=== PATIENT | male | born 1985 | race Caucasian/White ===

== ENCOUNTER → 2018-12-02 | Outpatient (CLI) | payer OTHER | END | disposition home or self-care (01) | LOC: LAB SHORT 13:50 → LAB SRC 13:50 | DX: F12.10 Cannabis abuse, uncomplicated (principal); Z79.899 Other long term (current) drug therapy | CPT/HCPCS: G0480 ==

== ENCOUNTER → 2018-12-24 | Outpatient (CLI) | payer OTHER | END | disposition home or self-care (01) | LOC: LAB SHORT 09:15 → LAB SRC 09:15 | DX: Z51.81 Encounter for therapeutic drug level monitoring (principal); F11.20 Opioid dependence, uncomplicated; Z79.899 Other long term (current) drug therapy | CPT/HCPCS: G0480 ==

== ENCOUNTER → 2020-01-17 | Outpatient (CLI) | payer OTHER | LOC: LAB SHORT 13:26 → LAB 13:26 | DX: Z51.81 Encounter for therapeutic drug level monitoring (principal); F11.20 Opioid dependence, uncomplicated | CPT/HCPCS: G0480 ==

== ENCOUNTER 2021-09-07 13:38 | Emergency (ER) | payer OTHER ==
[~2021-09-07] VITALS: Ht 172.7 cm; Wt 90.7 kg
== END 2021-09-07 16:12 | disposition home or self-care (01) ==
LOC: ER 13:38
DX: K40.90 Unilateral inguinal hernia, without obstruction or gangrene, not specified as recurrent (principal); F17.200 Nicotine dependence, unspecified, uncomplicated
CPT/HCPCS: 99283; A9270

== ENCOUNTER 2021-11-14 07:45 | Day surgery (SDC) | payer OTHER ==
[~2021-11-14] VITALS: Ht 172.7 cm; Wt 96.7 kg
--- NOTE | 2021-11-14 08:33 | NUR ---
PT AMBULATES TO [facility] c STEADY GAIT. History, Chart, Medications and Allergies reviewed before start of procedure. Lungs clear T/O to Auscultation, INTERMITTENT COUGH. Patient confirms NPO status and agrees with scheduled surgery. Surgical site prepped with 2% Chlorhexidine cloth wipe. Patient States Post-Procedure ride home has been arranged. [place] BAND IN PATIENTS BELONGINGS. + VOID.
--- NOTE | 2021-11-14 12:12 | NUR ---
ABSORBANT OCCLUSIVE DRSG TAPED TO LEFT GROIN, CLEAN, DRY AND INTACT WITH NO VISIBLE DRAINAGE, SWELLING, EYTHEMA OR BRUISING NOTED AROUND SITE. ICE APPLIED TO SURGERY SITE PER ORDER. PATIENT DENIES NAUSEA. WILL MEDICATE FOR C/O OF PAIN ONCE PATIENT HAS CRACKERS AND WATER.
--- NOTE | 2021-11-14 12:24 | NUR ---
Discharge instructions reviewed with patient. Patient verbalizes understanding. Copy given to patient to take home. Patient States Post-Procedure ride home has been arranged with his significant other, Sarah. Patient continues to deny nausea. Medicated for c/o pain to surgery site.
--- NOTE | 2021-11-15 10:02 | NUR ---
11/15/21 1002 Gwendolyn Latham VERIFICATIONS: EDIT CHART.
== END 2021-11-14 12:39 | disposition home or self-care (01) ==
LOC: ORSCMMR 07:45 → ORD 09:00 → ORSCMMR 12:39
PROVIDERS: Surgery
PROC: 0YU60JZ Supplement Left Inguinal Region with Synthetic Substitute, Open Approach (ICD-10-PCS; principal; 2021-11-14 09:00)
DX: K40.90 Unilateral inguinal hernia, without obstruction or gangrene, not specified as recurrent (principal); F17.290 Nicotine dependence, other tobacco product, uncomplicated
CPT/HCPCS: A9270; C1781; J0690; J1100; J2250; J2405; J2704; J3010; J7120

== ENCOUNTER 2024-02-28 21:10 | Emergency (ER) | payer OTHER ==
[~2024-02-28] VITALS: Ht 172.7 cm; Wt 93.0 kg
[2024-02-28 21:15] VITALS: BP 117/98
[2024-02-28] MEDS ORDERED: CEPH500 PO (22:09)
[2024-02-28] MEDS ORDERED: Cephalexin Monohydrate 500 MG Cap PO ONE (22:10)
== END 2024-02-28 22:31 | disposition home or self-care (01) ==
LOC: ER 21:10
DX: L03.116 Cellulitis of left lower limb (principal); F17.200 Nicotine dependence, unspecified, uncomplicated
CPT/HCPCS: 99282; A9270

== ENCOUNTER 2025-02-11 09:37 | Emergency (ER) | payer OTHER ==
[~2025-02-11] VITALS: Ht 172.7 cm; Wt 45.4 kg
[~2025-02-11 09:37] MED LIST: CEPH500 PO
[2025-02-11 09:42] VITALS: BP 116/76
== END 2025-02-11 09:46 | disposition home or self-care (01) ==
LOC: ER 09:37
DX: Z00.00 Encounter for general adult medical examination without abnormal findings (principal); F17.200 Nicotine dependence, unspecified, uncomplicated
CPT/HCPCS: 99281

== ENCOUNTER 2025-03-09 14:14 | Emergency (ER) | payer OTHER ==
[~2025-03-09] VITALS: Ht 172.7 cm; Wt 77.1 kg
[2025-03-09 14:25] VITALS: BP 144/89
[2025-03-09] MEDS ORDERED: Peg/Electrolytes 4,000 ML BTL PO ONE (14:55)
== END 2025-03-09 17:09 | disposition home or self-care (01) ==
LOC: ER 14:14
DX: F17.200 Nicotine dependence, unspecified, uncomplicated (principal); T40.415A Adverse effect of fentanyl or fentanyl analogs, initial encounter; T42.4X5A Adverse effect of benzodiazepines, initial encounter
CPT/HCPCS: 99284; A9270